=== PATIENT | male | born 1995 | race Two or more races ===

== ENCOUNTER 2018-08-29 23:06 | Emergency (ER) | payer MEDICAID ==
[~2018-08-29] VITALS: Ht 172.7 cm; Wt 117.9 kg
[2018-08-29 23:16] VITALS: BP 149/85
== END 2018-08-30 02:16 | disposition left against medical advice (07) ==
LOC: ER 23:18
DX: R50.9 Fever, unspecified (principal); Z53.21 Procedure and treatment not carried out due to patient leaving prior to being seen by health care provider